=== PATIENT | male | born 1990 | race Caucasian/White ===

== ENCOUNTER 2017-04-10 11:50 | Emergency (ER) | payer BC, OTHER ==
[2017-04-10] MEDS ORDERED: Sodium Chloride 0.9% 2.5 ML Syringe FLUSH PRN (12:19)
[2017-04-10] MEDS ORDERED: Dicyclomine 10 MG Cap PO ONE (12:19)
[2017-04-10] MEDS ORDERED: Sodium Chloride 0.9% 1,000 ML IV ONE (12:19)
[2017-04-10] MEDS ORDERED: Sodium Chloride 0.9% 10 ML Syringe FLUSH PRN (12:19)
[2017-04-10] MEDS ORDERED: Ketorolac 30 MG/ML SDV IVPUSH ONE (12:20)
--- NOTE | 2017-04-10 12:23 | EDM.PDOC ---
ED HPI GENERAL MEDICAL PROBLEM - General Chief Complaint: Abdominal Pain Stated Complaint: ABDOMINAL PAIN Time Seen by Provider: 04/10/17 12:07 - History of Present Illness INITIAL COMMENTS - FREE TEXT/NARRATIVE: HISTORY AND PHYSICAL: History of present illness: The patient is a 26-year-old male with no stated GI history who presents with 2 days of diffuse generalized lower abdominal pain and loose stools with blood. The patient has not had any vomiting or upper abdominal pain and has no flank pain or urinary issues. He says that he has had fevers but he has not taken his temperature at home. He has no surgical history other than a tonsillectomy and has only tried Pepto-Bismol [id number]. The patient says that 2 days ago he started feeling like his abdomen was getting tight and he had lower abdominal pain which was generalized not focal to the right or left side. He would feel like he had the urge to have a bowel movement and he wouldn't necessarily have a bowel movement. Stools were very loose but not watery and he would see pink blood in them. He is not passing any clots or copious blood and there is no black or maroon stools. He has no upper abdominal pain. Patient does drink alcohol on a weekly basis and chews tobacco. Patient has never had any GI workup. Patient initially presented to triage that he was worried that " his appendix burst". Review of systems: As per history of present illness and below otherwise all systems reviewed and negative. Past medical history: As per history of present illness and as reviewed below otherwise noncontributory. Surgical history: As per history of present illness and as reviewed below otherwise noncontributory. Social history: No reported history of drug or alcohol abuse. Family history: As per history of present illness and as reviewed below otherwise noncontributory. Physical exam: Gen.: Well-developed well-nourished man who is nontoxic and vital signs have been reviewed by me HEENT: Atraumatic, normocephalic, pupils reactive, negative for conjunctival pallor or scleral icterus, mucous membranes moist, throat clear, neck supple, nontender, trachea midline. Lungs: Clear to auscultation, breath sounds equal bilaterally, chest nontender. Heart: S1S2, regular, negative for clicks, rubs, or JVD. Abdomen: Soft, nondistended, bowel sounds are hypoactive. There is minimal tenderness diffusely in the lower abdomen not localizing right or left there is no rebound or guarding on my evaluation. Negative for masses or hepatosplenomegaly. Negative for costovertebral tenderness. Pelvis: Stable nontender. Genitourinary: Deferred. Rectal: There is a very small soft external hemorrhoid seen at the 7:00 lithotomy position which is not showing any evidence of any old or new bleeding. Tone is normal. There is no stool in the vault but there is some scant pink mucus which is Hemoccult positive. There are no internal masses on my digital exam. Extremities: Atraumatic, negative for cords or calf pain. Neurovascular unremarkable. Neuro: Awake, alert, oriented. Cranial nerves II through XII unremarkable. Cerebellum unremarkable. Motor and sensory unremarkable throughout. Exam nonfocal. Diagnostics: CBC CMP INR amylase lipase CT scan of the abdomen and pelvis Patient produced a stool sample we will evaluated for study Therapeutics: IV, IV fluids, Bentyl, Toradol Please note that after lab angle labs, the nurse went in to start the IV and patient refused the IV. I discussed with him because he is lean that the CT scan would need to be performed with contrast and one of his concern was of his appendix. I Explained to him that blood work would not give me the full picture of his appendix or his other symptoms of diffuse lower abdominal pain and blood in his stool.I also told him that clinically it did not appear that he had appendicitis and that was lower on my differential in light of his other symptomatology but I could better determine the cause of his pain with the CAT scan. I Encouraged him to proceed to have this evaluation done but at this point he would like to refuse the IV and the CAT scan and be discharged home. He says he will just follow up with his doctor back home in [place]. He is aware of risks and accepts them. Impression: Lower abdominal pain and diarrhea with blood, refusing further evaluation Definitive disposition and diagnosis as appropriate pending reevaluation and review of above. Abdomen Pain Score (Numeric/FACES): 7 - Related Data Allergies Allergy/AdvReac Type Severity Reaction Status Date / Time No Known Allergies Allergy Verified 04/10/17 12:19 Home Meds: Home Meds . [No Known Home Meds] 04/10/17 [History] Past Medical History - Past Health History Medical/Surgical History: Denies Medical/Surgical History Social & Family History - Family History Family Medical History: Noncontributory - Caffeine Use Caffeine Use: Reports: Coffee, Energy Drinks - Recreational Drug Use Recreational Drug Use: No ED ROS GENERAL - Review of Systems Review Of Systems: ROS reveals no pertinent complaints other than HPI. ED EXAM, GENERAL - Physical Exam Exam: See Below (see dictation) Course - Vital Signs Last Recorded V/S: Last Vital Signs Temp 36.1 C 04/10/17 12:10 Pulse 73 04/10/17 12:10 Resp 16 04/10/17 12:10 BP 132/88 04/10/17 12:10 Pulse Ox 99 04/10/17 12:10 - Orders/Labs/Meds Orders: Active Orders 24 hr Category Date Time Status Communication Order [RC] STAT Care 04/10/17 12:23 Active Abdomen Pelvis w Cont [CT] Stat Exams 04/10/17 12:19 Stop Req AMYLASE [CHEM] Stat Lab 04/10/17 12:25 Received COMPREHENSIVE METABOLIC PN,CMP [CHEM] Stat Lab 04/10/17 12:25 Received LIPASE [CHEM] Stat Lab 04/10/17 12:25 Received Labs: Laboratory Tests 04/10/17 04/10/17 Range/Units 12:25 12:25 WBC 6.25 (4.0-11.0) K/uL RBC 5.21 (4.50-5.90) M/uL Hgb 15.3 (13.0-17.0) g/dL Hct 43.5 (38.0-50.0) % MCV 83.5 (80.0-98.0) fL MCH 29.4 (27.0-32.0) pg MCHC 35.2 (31.0-37.0) g/dL RDW Std Deviation 38.4 (28.0-62.0) fl RDW Coeff of Leeann 13 (11.0-15.0) % Plt Count 228 (150-400) K/uL MPV 9.50 (7.40-12.00) fL Neut % (Auto) 62.3 (48.0-80.0) % Lymph % (Auto) 21.8 (16.0-40.0) % Ellis % (Auto) 12.5 (0.0-15.0) % Eos % (Auto) 2.6 (0.0-7.0) % Baso % (Auto) 0.8 (0.0-1.5) % Neut # (Auto) 3.9 (1.4-5.7) K/uL Lymph # (Auto) 1.4 (0.6-2.4) K/uL Ellis # (Auto) 0.8 (0.0-0.8) K/uL Eos # (Auto) 0.2 (0.0-0.7) K/uL Baso # (Auto) 0.1 (0.0-0.1) K/uL Nucleated RBC % 0.0 /100WBC Nucleated RBCs # 0 K/uL INR 1.12 Meds: Medications Discontinued Medications Generic Name Dose Route Start Last Admin Trade Name Freq PRN Reason Stop Dose Admin Dicyclomine HCl 20 mg 04/10/17 12:19 Bentyl PO 04/10/17 12:20 ONETIME ONE Sodium Chloride 1,000 mls @ 999 mls/hr 04/10/17 12:19 Normal Saline IV 04/10/17 13:19 STAT ONE Ketorolac Tromethamine 30 mg 04/10/17 12:20 Toradol IVPUSH 04/10/17 12:21 ONETIME ONE Sodium Chloride 10 ml 04/10/17 12:19 Saline Flush FLUSH ASDIRECTED PRN Keep Vein Open Sodium Chloride 2.5 ml 04/10/17 12:19 Saline Flush FLUSH ASDIRECTED PRN Keep Vein Open Departure - Departure Time of Disposition: 13:03 Disposition: Home, Self-Care 01 Condition: Good Clinical Impression: Abdominal pain Qualifiers: Abdominal location: lower abdomen, unspecified Qualified Code(s): R10.30 - Lower abdominal pain, unspecified Diarrhea Qualifiers: Diarrhea type: unspecified type Qualified Code(s): R19.7 - Diarrhea, unspecified - Discharge Information Referrals: PCP,None [Primary Care Provider] - Forms: ED Department Discharge Additional Instructions: The following information is given to patients seen in the emergency department who are being discharged to home. This information is to outline your options for follow-up care. We provide all patients seen in our emergency department with a follow-up referral. The need for follow-up, as well as the timing and circumstances, are variable depending upon the specifics of your emergency department visit. If you don't have a primary care physician on staff, we will provide you with a referral. We always advise you to contact your personal physician following an emergency department visit to inform them of the circumstance of the visit and for follow-up with them and/or the need for any referrals to a consulting specialist. The emergency department will also refer you to a specialist when appropriate. This referral assures that you have the opportunity for followup care with a specialist. All of these measure are taken in an effort to provide you with optimal care, which includes your followup. Under all circumstances we always encourage you to contact your private physician who remains a resource for coordinating your care. When calling for followup care, please make the office aware that this follow-up is from your recent emergency room visit. If for any reason you are refused follow-up, please contact the [facility] emergency department at and ask to speak to the emergency department charge nurse. [facility] Primary care- [place] [address] Please push hydration and avoid caffeinated products and alcohol. Please call and follow-up with one of our clinic providers if you choose or follow-up with your provider back home in [place] for further care and evaluation. Return to ER as needed and as discussed. - My Orders Last 24 Hours: My Active Orders 04/10/17 12:19 Abdomen Pelvis w Cont [CT] Stat 04/10/17 12:23 Communication Order [RC] STAT 04/10/17 12:25 AMYLASE [CHEM] Stat COMPREHENSIVE METABOLIC PN,CMP [CHEM] Stat LIPASE [CHEM] Stat - Assessment/Plan Last 24 Hours: My Active Orders 04/10/17 12:19 Abdomen Pelvis w Cont [CT] Stat 04/10/17 12:23 Communication Order [RC] STAT 04/10/17 12:25 AMYLASE [CHEM] Stat COMPREHENSIVE METABOLIC PN,CMP [CHEM] Stat LIPASE [CHEM] Stat
[2017-04-10 13:24] LABS: CHLORIDE,CL 104 mmol/L (98-107); SODIUM,NA 140 mmol/L (136-148)
== END 2017-04-10 13:29 | disposition home or self-care (01) ==
LOC: MW.ED 11:50
DX: R10.30 Lower abdominal pain, unspecified (principal); R19.7 Diarrhea, unspecified; F17.220 Nicotine dependence, chewing tobacco, uncomplicated
CPT/HCPCS: 36415; 80053; 82150; 83690; 85025; 85610; 99283; 99284